=== PATIENT | female | born 1955 | race Caucasian/White ===

== ENCOUNTER 2020-08-03 15:57 | Emergency (ER) | payer MEDICARE, BC ==
[2020-08-03] MEDS ORDERED: Ondansetron 4 MG/2 ML SDV IVPUSH ONE (15:59)
[2020-08-03] MEDS ORDERED: Sodium Chloride 0.9% 1,000 ML IV SCH (16:00)
[2020-08-03] MEDS ORDERED: Ketorolac 30 MG/ML SDV IVPUSH ONE (16:24)
[2020-08-03] MEDS ORDERED: hydrOXYzine HCl 50 MG/ML SDV IM ONE (16:24)
--- NOTE | 2020-08-03 17:18 | EDM.PDOC ---
ED HPI GENERAL MEDICAL PROBLEM - General Chief Complaint: Headache Stated Complaint: HIGH BP, VOMITING,FEVER Time Seen by Provider: 08/03/20 16:20 Source of Information: Reports: Patient, Family History Limitations: Reports: No Limitations - History of Present Illness INITIAL COMMENTS - FREE TEXT/NARRATIVE: pt had 2nd Moderna COVID vaccine yesterday . Overnight she developed headache , fever and chills that slowly got worse . Has had no fever up to 1001, nausea and vomiting , frontal / bitemporal headache has gotten worse has generalized body aches also had COVID infection last year January Onset: Today, Gradual Onset Date: 08/03/20 Onset Time: 01:00 Duration: Getting Worse Location: Reports: Head, Back, Generalized Quality: Reports: Ache, Pressure, Sharp Severity: Moderate Improves with: Reports: None Worsens with: Reports: None Context: Reports: Other (had COVID vaccine yesterday) Treatments STOGY ROLLER: Reports: Acetaminophen Frontal headache with generalized body aches Pain Score (Numeric/FACES): 10 - Related Data Allergies Allergy/AdvReac Type Severity Reaction Status Date / Time No Known Allergies Allergy Verified 08/03/20 16:32 Home Meds: Home Meds Levothyroxine Sodium [Synthroid] 75 mcg PO DAILY 11/03/13 [History] Venlafaxine [Effexor] 75 mg PO DAILY 11/03/13 [History] Ascorbate Calcium [Vitamin C] 1,000 mg PO DAILY 08/03/20 [History] Cholecalciferol (Vitamin D3) [Vitamin D3] 2,000 unit PO DAILY 08/03/20 [History] Ketorolac [Toradol] 10 mg PO Q6H PRN #15 tab 08/03/20 [Rx] Losartan [Cozaar] 50 mg PO DAILY 08/03/20 [History] Multivitamin [Multi-Vitamin Daily] 1 each PO DAILY 08/03/20 [History] Zinc 50 mg PO DAILY 08/03/20 [History] Past Medical History Cardiovascular History: Reports: Hypertension Gastrointestinal History: Reports: Other (See Below) Other Gastrointestinal History: GASTRIC BYPASS Genitourinary History: Reports: Other (See Below) 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 RESIDENT CARE ASSOCIATE History: Musculoskeletal History: Reports: Arthritis, Fracture Other Musculoskeletal History: hx R wrist Neurological History: Reports: Migraines Psychiatric History: Reports: Anxiety, Depression Endocrine/Metabolic History: Reports: Hypothyroidism, Obesity/BMI 30+ - Infectious Disease History Infectious Disease History: Reports: Novel Coronavirus, Other (See Below) Other Infectious Disease History: [place] - Past Surgical History HEENT Surgical History: Reports: Adenoidectomy, Tonsillectomy GI Surgical History: Reports: Appendectomy, Bariatric Procedure Female Surgical History: Reports: Section, Hysterectomy, Other (See Below) Other Female Surgeries/Procedures: A& P repair, CS x 3 Neurological Surgical History: Reports: Discectomy, Spinal Fusion Musculoskeletal Surgical History: Reports: Shoulder Surgery, Other (See Below) Other Musculoskeletal Surgeries/Procedures:: R ROTATOR CUFF SURGERY AND 2 BACK SURGERIES Social & Family History - Family History Family Medical History: No Pertinent Family History - Tobacco Use Tobacco Use Status *Q: Never Tobacco User - Caffeine Use Caffeine Use: Reports: Coffee - Recreational Drug Use Recreational Drug Use: No ED ROS GENERAL - Review of Systems Review Of Systems: See Below Constitutional: Reports: Fever, Chills, Malaise, Weakness, Fatigue HEENT: Reports: No Symptoms Respiratory: Reports: No Symptoms Cardiovascular: Reports: No Symptoms Endocrine: Reports: Fatigue GI/Abdominal: Reports: No Symptoms : Reports: No Symptoms Musculoskeletal: Reports: Neck Pain, Shoulder Pain, Back Pain Skin: Reports: No Symptoms Neurological: Reports: Headache. Denies: Confusion, Dizziness, Numbness, Seizure, Syncope, Tingling, Trouble Speaking, Difficulty Walking, Change in Speech, Gait Disturbance Psychiatric: Reports: No Symptoms. Denies: Agitation, Anxiety, Confusion Hematologic/Lymphatic: Reports: No Symptoms Immunologic: Reports: No Symptoms - Physical Exam Exam: See Below Exam Limited By: No Limitations General Appearance: Alert, WD/WN, No Apparent Distress Eye Exam: Bilateral Eye: EOMI Ears: Normal External Exam, Normal TMs Nose: Normal Inspection Throat/Mouth: Normal Oropharynx Head Exam: Atraumatic, Normocephalic Neck: Supple Respiratory/Chest: Lungs Clear, Normal Breath Sounds Cardiovascular: Normal Peripheral Pulses, Regular Rate, Rhythm GI/Abdominal: Soft, Non-Tender Neuro Exam (Abbreviated): Alert, Oriented DTR: 2+: Patella (R), Patella (L) Back Exam: Normal Inspection, Full Range of Motion Extremities: Normal Inspection, Normal Range of Motion, No Pedal Edema Course - Vital Signs Last Recorded V/S: Last Vital Signs Temp 37.0 C 08/03/20 17:21 Pulse 95 08/03/20 17:21 Resp 18 08/03/20 17:21 BP 145/74 H 08/03/20 17:21 Pulse Ox 96 08/03/20 17:21 - Orders/Labs/Meds Labs: Laboratory Tests 08/03/20 08/03/20 08/03/20 Range/Units 16:07 16:07 16:07 WBC 5.8 (3.0-10.3) x10-3/uL RBC 4.50 (3.60-5.20) x10(6)uL Hgb 13.4 (11.4-15.5) g/dL Hct 40.8 (34.2-48.2) % MCV 90.7 (76.7-100.5) fL MCH 29.8 (23.9-33.9) pg MCHC 32.9 (31.9-34.8) g/dL RDW 14.7 (12.3-16.5) % Plt Count 252 (151-488) x10(3)uL MPV 7.5 (7.1-12.4) fL Neut % (Auto) 84.1 H (30.8-76.2) % Lymph % (Auto) 8.2 L (18.4-52.1) % Randolph % (Auto) 6.4 (4.4-15.7) % Eos % (Auto) 0.8 (0.6-8.1) % Baso % (Auto) 0.5 (0.2-1.5) % Neut # (Auto) 4.9 (1.5-6.3) x10-3/uL Lymph # (Auto) 0.5 L (1.0-4.4) x10-3/uL Randolph # (Auto) 0.4 (0.3-1.0) x10-3/uL Eos # (Auto) 0.0 (0.0-0.8) x10-3/uL Baso # (Auto) 0.0 (0.0-0.1) x10-3/uL Sodium 141 (135-145) mmol/L Potassium 4.0 (3.5-5.3) mmol/L Chloride 101 (100-110) mmol/L Carbon Dioxide 26 (21-32) mmol/L BUN 18 (7-18) mg/dL Creatinine 0.9 (0.55-1.02) mg/dL Est Cr Clr Drug Dosing TNP Estimated GFR (MDRD) > 60 (>60) BUN/Creatinine Ratio 20.0 (9-20) Glucose 108 (80-116) mg/dL Calcium 8.9 (8.6-10.2) mg/dL Total Bilirubin 0.5 (0.1-1.3) mg/dL AST 28 H (5-25) IU/L ALT 35 (12-36) U/L Alkaline Phosphatase 101 (56-112) IU/L C-Reactive Protein 3.3 H* (0.5-0.9) mg/dL Total Protein 7.6 (6.0-8.0) g/dL Albumin 3.8 (3.2-4.6) g/dL Globulin 3.8 g/dL Albumin/Globulin Ratio 1.0 Meds: Medications Discontinued Medications Generic Name Dose Route Start Last Admin Trade Name Freq PRN Reason Stop Dose Admin Hydroxyzine HCl 50 mg 08/03/20 16:24 08/03/20 16:31 Hydroxyzine Hcl 50 Mg/Ml Sdv IM 08/03/20 16:25 50 mg ONETIME ONE Administration Sodium Chloride 1,000 mls @ 999 mls/hr 08/03/20 16:00 08/03/20 16:19 Normal Saline IV 999 mls/hr ASDIRECTED FERNY Administration Ketorolac Tromethamine 30 mg 08/03/20 16:24 08/03/20 16:30 Ketorolac 30 Mg/Ml Sdv IVPUSH 08/03/20 16:25 30 mg ONETIME ONE Administration Ondansetron HCl 8 mg 08/03/20 15:59 08/03/20 16:20 Ondansetron 4 Mg/2 Ml Sdv IVPUSH 08/03/20 16:00 8 mg ONETIME ONE Administration - Re-Assessments/Exams Free Text/Narrative Re-Assessment/Exam: 08/03/20 17:18 had labs drawn recieved fluid toradol and vistaril headache reduced from 8/10 to about 2/10 Departure - Departure Time of Disposition: 17:30 Disposition: Home, Self-Care 01 Condition: Good 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, 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 vaccine series - Discharge Information *PRESCRIPTION DRUG MONITORING PROGRAM REVIEWED*: Not Applicable *COPY OF PRESCRIPTION DRUG MONITORING REPORT IN PATIENT ELIO: Not Applicable Prescriptions: Ketorolac [Toradol] 10 mg PO Q6H PRN #15 tab PRN Reason: Headache Instructions: Dehydration, Adult, [id number], General Headache Without Cause, [id number] Referrals: Tereza Roberts, SURVEY RODMAN [Primary Care Provider] - Forms: ED Department Discharge Additional Instructions: 1) Increase fluid intake 2) Take vitamin d , c and Zinc 3) Call and discuss reaction with your PCP 4) Follow up as needed Sepsis Event Note (ED) - Evaluation Sepsis Screening Result: No Definite Risk
[2020-08-03 17:49] VITALS: BP 145/74; PULSE 95
== END 2020-08-03 17:35 | disposition home or self-care (01) ==
LOC: FB.ED 15:57
DX: R51.9 Headache, unspecified (principal); R50.9 Fever, unspecified; I10 Essential (primary) hypertension; T50.B95A Adverse effect of other viral vaccines, initial encounter; E03.9 Hypothyroidism, unspecified; E66.9 Obesity, unspecified; Z68.29 Body mass index [BMI] 29.0-29.9, adult
CPT/HCPCS: 36415; 80053; 85025; 86140; 96372; 96374; 96375; 99284-25; J1885; J2405; J3410; J7030

== ENCOUNTER 2022-06-28 20:19 | Emergency (ER) | payer MEDICARE, BC ==
[~2022-06-28 20:19] MED LIST: LORazepam 2 MG/ML SDV IM ONE
[2022-06-28] MEDS ORDERED: LORazepam 0.5 MG Tab PO ONE (20:20)
[2022-06-29] MEDS ORDERED: LORazepam 2 MG/ML SDV ONE (01:17)
[2022-06-29 01:29] VITALS: BP 152/91; PULSE 111
== END 2022-06-28 21:50 | disposition home or self-care (01) ==
LOC: FB.ED 20:19
DX: F43.0 Acute stress reaction (principal); I10 Essential (primary) hypertension; E03.9 Hypothyroidism, unspecified; M19.90 Unspecified osteoarthritis, unspecified site; E66.9 Obesity, unspecified; Z68.25 Body mass index [BMI] 25.0-25.9, adult; Z86.16 Personal history of COVID-19; Z79.899 Other long term (current) drug therapy
CPT/HCPCS: 96372; 99284; 99285; A9270-GY; J2060